=== PATIENT | female | born 1980 | race Caucasian/White ===

== ENCOUNTER 2022-07-05 06:07 | Outpatient (CLI) | payer BC ==
[~2022-07-05] VITALS: Ht 160 cm; Wt 121.0 kg
[2022-07-06] MEDS ORDERED: FLUO40CA PO (10:43)
== END 2022-07-06 10:48 | disposition home or self-care (01) ==
LOC: PREOP 06:07
PROVIDERS: ATTEND Surgery
DX: Z01.818 Encounter for other preprocedural examination (principal)

== ENCOUNTER → 2022-07-13 | Outpatient (CLI) | payer BC ==
[~2022-07-13] MED LIST: CATHETER FLUSH 10 ML SYR IVP PRN; FLUO40CA PO
--- NOTE | 2022-07-13 10:32 | Diagnostic Imaging Report ---
INDICATION: Epigastric pain EXAM: HIDA scan from 07/13/2022 FINDINGS: After the uneventful administration of 5.49 mCi of Choletec intravenously, subsequent imaging is performed with prompt homogeneous uptake seen throughout the liver. Gallbladder and small bowel are seen within less than 65 minutes. Subsequently, administration of Ensure was administered orally with continued imaging performed and ejection fraction calculated at 62.3%. IMPRESSION: 1. No obstructive process with normal ejection fraction. Dictated by: Dictated on workstation # [id number]
== END ==
LOC: CARD 10:00
PROVIDERS: ATTEND Surgery
DX: R10.13 Epigastric pain (principal)
CPT/HCPCS: 78227; A9537

== ENCOUNTER 2022-07-17 08:52 | Day surgery (SDC) | payer BC ==
[~2022-07-17] VITALS: Ht 160 cm; Wt 121.0 kg
[~2022-07-17 08:52] MED LIST changes: -CATHETER FLUSH 10 ML SYR IVP PRN
[2022-07-17] MEDS ORDERED: LACTATED RINGERS 1,000 ML IV STA (08:54)
[2022-07-17] MEDS ORDERED: LACTATED RINGERS 1,000 ML IV ONE (08:58)
[2022-07-17] MEDS ORDERED: HURRICAINE EXT TUBE (BENZOCAINE) ONE (08:58)
[2022-07-17] MEDS ORDERED: HURRICAINE EXT TUBE (BENZOCAINE) XX PRN (09:00)
--- NOTE | 2022-07-17 09:22 | Progress Note-Pre Operative ---
Pre-Operative Progress Note Date of Available H&P: Jun 29, 2022 Date H&P Reviewed: Jul 17, 2022 Time H&P Reviewed: 09:21 History & Physical: H&P Reviewed, Patient Examed, No changes noted Pre-Operative Diagnosis: Heartburn SIRI MCLAUGHLIN DO Jul 17, 2022 09:22
[2022-07-17 09:24] VITALS: BP 143/79
[2022-07-17] MEDS ORDERED: PROPOFOL INJECTION 50 ML IV ONE (09:40)
[2022-07-17] MEDS ORDERED: MIDAZOLAM 2 MG/2 ML (VERSED) VIAL ONE (09:40)
--- NOTE | 2022-07-17 09:59 | Progress Note-Post Operative ---
Post-Operative Progess Note Surgeon (s)/Payroll Bookkeeper (s) Surgeon SIRI MCLAUGHLIN DO Payroll Bookkeeper: none Pre-Operative Diagnosis Heartburn Post-Operative Diagnosis Gastritis Hiatal Hernia Garcia's esophagus Procedure & Operative Findings Date of Procedure 07/17/22 Procedure Performed/Findings EGD with biopsy PROCEDURE NOTE: After informed consent was obtained, the patient was brought to the endoscopy suite, placed in bed in left lateral decubitus position. She was administered IV sedation by the MANUFACTURING LEAD who then monitored vitals the entire time, heart rate, blood pressure and pulse ox and the scope was inserted down the mouth through the esophagus into the stomach. On the way down, noted some moderate esophagitis, took a picture, pushed into the stomach and noted some mild Gastritis. Pushed past the antrum into the duodenum; duodenum looked good. Pulled back and did a biopsy of the antrum, then retroflexed the scope, saw 1-2 cm hiatal hernia; Grade III defect. Took a picture of this and then pulled the scope into the GE junction, took another picture of the hiatal hernia and then did a biopsy of the GE junction. At the GE junction it looked like Garcia's esophagus; so I did two biopsies. Pushed the scope back into the stomach, suctioned all the air out of the stomach. At this point pulled the scope up the esophagus and out the mouth. The patient tolerated the procedure, and she recovered in endoscopy suite. Anesthesia Type IV sedation by MANUFACTURING LEAD Estimated Blood Loss Estimated blood loss (mL): scant Specimens/Packing Specimens Removed antrum bx body of stomach bx GE jxn bx SIRI MCLAUGHLIN DO Jul 17, 2022 09:59
--- NOTE | 2022-07-17 09:59 | Endoscopy Discharge Instruct ---
Endo Procedure/Findings Findings 1.: Gastritis 2.: Hiatal Hernia 3.: Garcia's Esophagus Discharge Instructions - Activity: You might feel a little sleepy until tomorrow. This is due to the medicine you received to relax you. Until tomorrow, you should: NOT drive a car, operate machinery or power tools. NOT drink any alcoholic beverages. NOT make any important decisions or sign importortant papers. Do not return to work until tomorrow, unless otherwise instructed. Resume previous activities tomorrow. Diet: Start by taking liquids. If you tolerate liquids, advance to solid food. 1.: EGD in 1 year Notify Physician - If you experience excessive bleeding, unusual abdominal pain, fever, or chest pain, contact your doctor immediately. SIRI MCLAUGHLIN DO Jul 17, 2022 09:59
[2022-07-17 10:03] VITALS: BP 142/89
[2022-07-17 10:08] VITALS: BP 124/79
[2022-07-17 10:10] VITALS: BP 128/78
[2022-07-17 10:50] VITALS: BP 128/78
--- NOTE | 2022-07-17 12:12 | Anesthesia-General Post-Op ---
MAC Patient Condition Mental Status/LOC: Same as Preop Cardiovascular: Satisfactory Nausea/Vomiting: Absent Respiratory: Satisfactory Pain: Controlled Complications: Absent Post Op Complications Complications None Follow Up Care/Instructions Patient Instructions None needed. Anesthesiology Discharge Order Discharge Order Patient is doing well, no complaints, stable vital signs, no apparent adverse anesthesia problems. No complications reported per nursing. JOHNATHAN TRUJILLO CRNA Jul 17, 2022 12:12
== END 2022-07-17 10:52 | disposition home or self-care (01) ==
LOC: ENDO 08:52
PROVIDERS: ATTEND Surgery
DX: K29.50 Unspecified chronic gastritis without bleeding (principal); K21.00 Gastro-esophageal reflux disease with esophagitis, without bleeding; K44.9 Diaphragmatic hernia without obstruction or gangrene; K22.70 Barrett's esophagus without dysplasia; E66.01 Morbid (severe) obesity due to excess calories; Z68.42 Body mass index [BMI] 45.0-49.9, adult; Z28.310 Unvaccinated for COVID-19
CPT/HCPCS: 84703